=== PATIENT | male | born 1990 | race Caucasian/White ===

== ENCOUNTER 2017-02-21 21:33 | Emergency (ER) | payer MEDICAID ==
[~2017-02-21] VITALS: Ht 182.9 cm; Wt 92.1 kg
[~2017-02-21 21:33] MED LIST: BACTRIM DS 8001 TA1 PO; CEPHALEXIN500 MG PO; ERY-TAB 250MG250 MG OR; GABAPENTIN300 MG PO; IBU-8800 MG PO; LORTAB 5/500 501 TAB OR; LORTAB 5/500 501 TAB PO; NOMEDS; NOMEDS XX; PHENERGAN 25MG.25 M1 PO; PROPRANOLOL HCL20 MG PO; ZANTAC OR; [UNRECOGNIZED DRUG - OTHER] OR
--- OUTSIDE RECORDS SUMMARY | 2017-02-21 21:52 | External Medical Summary Rpt ---
Author Author DAVID Production, DAVID [employer] Organization DAVID [employer] Address Unknown Phone Unavailable Results CHLAMYDIA AND GONORRHEA TESTING Observa Value Referen Units Interpr Notes Date tion ce etation Range COLLECT PATIENT No No No No Nov 09 OR AND T. informa informa informa informa 2014 tion in tion in tion in tion in 1:00 PM CHACORTA source source source source RN data data data data ETHNICI WHITE, No No No No Nov 09 TY NON-HIS informa informa informa informa 2014 PANIC tion in tion in tion in tion in 1:00 PM source source source source data data data data KIT 09-30-2 No No No No Nov 09 EXPIRAT 014 informa informa informa informa 2014 ION tion in tion in tion in tion in 1:00 PM DATE source source source source data data data data SYMPTOM YES No No No No Nov 09 S informa informa informa informa 2014 tion in tion in tion in tion in 1:00 PM source source source source data data data data REASON SEX No No No No Nov 09 FOR PARTNER informa informa informa informa 2014 REQUEST tion in tion in tion in tion in 1:00 PM REFERRA source source source source L data data data data SPECIME URINE No No No No Nov 09 N informa informa informa informa 2014 SOURCE tion in tion in tion in tion in 1:00 PM source source source source data data data data PREGNAN NO No No No No Nov 09 T informa informa informa informa 2014 tion in tion in tion in tion in 1:00 PM source source source source data data data data CHART NA No No No No Nov 09 NUMBER informa informa informa informa 2014 tion in tion in tion in tion in 1:00 PM source source source source data data data data Chlamyd NEGATIV No No No NEGATIV Nov 09 ia E informa informa informa E 2014 trachom tion in tion in tion in RESULT= 1:00 PM atis source source source WITHIN rRNA data data data NORMAL [Presen ce] in LIMITSP Unspeci OSITIVE fied specime RESULT= n by Probe & ABNORMA target LEQUIVO LANA amplifi RESULT= cation method INDETER MINATEU NSATISF ACTORY RESULT= INVALID Neisser POSITIV No No No NEGATIV Nov 09 ia E informa informa informa E 2014 gonorrh tion in tion in tion in RESULT= 1:00 PM oeae source source source WITHIN rRNA data data data NORMAL [Presen ce] in LIMITSP Unspeci OSITIVE fied specime RESULT= n by Probe & ABNORMA target LEQUIVO LANA amplifi RESULT= cation method INDETER MINATEU NSATISF ACTORY RESULT= INVALID THE APTIMA COMBO 2 ASSAY IS NOT INTENDE D FOR THE EVALUAT ION OF SUSPECT EDSEXUA L ABUSE OR FOR OTHER MEDICO- LEGAL INDICAT IONS. FOR THOSE PATIENT S FORWHOM A FALSE POSITIV E RESULT MAY HAVE ADVERSE PSYCHO- SOCIAL IMPACT, THE [facility] DAMRECO MMENDS RETESTI NG.\.br \This report contain s patient informa tion that must be protect ed in accorda nce with the Health Insuran ce Portabi lity and Account ability Act. CHLAMYDIA AND GONORRHEA TESTING Observa Value Referen Units Interpr Notes Date tion ce etation Range COLLECT PATIENT No No No No Nov 09 OR AND T. informa informa informa informa 2013 tion in tion in tion in tion in 1:00 PM CHACORTA source source source source RN data data data data ETHNICI WHITE, No No No No Nov 09 TY NON-HIS informa informa informa informa 2014 PANIC tion in tion in tion in tion in 1:00 PM source source source source data data data data KIT -30-2 No No No No Nov 09 EXPIRAT 014 informa informa informa informa 2014 ION tion in tion in tion in tion in 1:00 PM DATE source source source source data data data data SYMPTOM YES No No No No Nov 09 S informa informa informa informa 2014 tion in tion in tion in tion in 1:00 PM source source source source data data data data REASON SEX No No No No Nov 09 FOR PARTNER informa informa informa informa 2014 REQUEST tion in tion in tion in tion in 1:00 PM REFERRA source source source source L data data data data SPECIME URINE No No No No Nov 09 N informa informa informa informa 2014 SOURCE tion in tion in tion in tion in 1:00 PM source source source source data data data data PREGNAN NO No No No No Nov 09 T informa informa informa informa 2014 tion in tion in tion in tion in 1:00 PM source source source source data data data data CHART NA No No No No Nov 09 NUMBER informa informa informa informa 2014 tion in tion in tion in tion in 1:00 PM source source source source data data data data Chlamyd Pending No No No No Nov 09 ia informa informa informa informa 2014 trachom tion in tion in tion in tion in 1:00 PM atis source source source source rRNA data data data data [Presen ce] in Unspeci fied specime n by Probe & target amplifi cation method Neisser Pending No No No \.br\Nov 09 ia informa informa informa is 2014 gonorrh tion in tion in tion in report 1:00 PM oeae source source source contain rRNA data data data s [Presen patient ce] in Unspeci informa fied tion specime that n by must be Probe & target protect ed in amplifi accorda cation nce method with the Health Insuran ce Portabi lity and Account ability Act.
--- OUTSIDE RECORDS SUMMARY | 2017-02-21 21:52 | External Medical Summary Rpt | CCD ---
Author Author , DAVID Organization DAVID Address Unknown Phone [email or web address] Providers Care Chief Lock Operator Name Role Phone [facility] Unavailable [facility]available SERVICE, [facility] Unavailable Unavailable INC, [facility], Unavailable Unavailable PLL[facility], [facility] Purpose Continuity of Care Document - 03-10-2016 through 2016 Problems Code Diagnosis DOS Provider Status [id number] UNS INJURY 05-22-2016 [facility] AT [facility] CERV SERVICE SPINAL CORD INIT ENC [id number] SUPERFICIAL 05-22-2016 [facility] BODY RT PLL[facility] KNEE INITIAL ENCNTR [id number] STRAIN UNS 05-22-2016 [facility], TENDON LOW PLLC LEG RT LEG INIT ENC B182 CHRONIC 03-10-2016 [facility] Encounters Encounter Start End Date Code Location Performer Type Date [facility] - [facility] 6 [facility] T
--- OUTSIDE RECORDS SUMMARY | 2017-02-21 21:52 | External Medical Summary Rpt | CCD ---
Author Author , DAVID HERNANDEZ Address Unknown Phone [email or web address] Care Team Providers Care Leather Currier Name Role Phone [facility] Unavailable Unavailable SERVICE, [facility] Unavailable Unavailable INC, [facility] Sarah Johnson MD, Unavailable Unavailable Sarah [facility], Unavailable Unavailable PLL[facility], [facility] Purpose Continuity of Care Document - 09-14-2012 through 2016 Problems Code Diagnosis DOS Provider Status [id number] UNS INJURY 05-22-2016 [facility] AT [facility] AMBULANCE CERV SERVICE SPINAL CORD INIT ENC [id number] SUPERFICIAL 05-22-2016 [facility] BODY RT PLL[facility] KNEE INITIAL ENCNTR [id number] STRAIN UNS 05-22-2016 [facility] LEG RT LEG INIT ENC B182 CHRONIC 03-10-2016 [place] [facility] INC 305.1 305.1 01-04-2013 [place] TOBACCO USE [facility] 681.00 681.00 01-04-2013 [place] CELLULITIS, [facility] FINGER [facility] V14.0 V14.0 01-04-2013 [place] HX-PENICILL [facility] 914.4 914.4 09-14-2012 [place] INSECT BITE [facility] Allergies, Adverse Reactions, Alerts Type Drug Allergy Adverse Reaction to Substance Substance Reaction Severity Penicillin I-RASH Intermediate Medications Na ND Rx Da Fi Fi Am Da Di Ph RX Ph St me C No te ll ll ou ys ag ar # ys at rm s nt no ma ic us Or Da si cy ia de te s n re d SALDIVAR 51 10 0 No LF 07 -0 AM 90 2- Lo ET 12 20 ng HO 82 13 er XA 0 ZO Ac LE ti -T ve MP DS TA BL ET CE 62 10 0 No PH 75 -0 AL 60 2- Lo EX 29 20 ng IN 48 13 er 8 50 Ac 0 ti MG ve CA PS UL E Vital Signs 01-04-2013 22:02 Name Value Interpretat Reference Comment ion Range Body 98.8 [degF] Temperature BP 64 mm[Hg] Diastolic BP Systolic 116 mm[Hg] Heart 64 /min Rate/Pulse O2% 98 % Respiratory 20 /min Rate 01-04-2013 21:57 Name Value Interpretat Reference Comment ion Range BP 64 mm[Hg] Diastolic BP Systolic 116 mm[Hg] Heart 64 /min Rate/Pulse O2% 98 % Respiratory 20 /min Rate 09-14-2012 12:42 Name Value Interpretat Reference Comment ion Range Body 98.2 [degF] Temperature BP 80 mm[Hg] Diastolic BP Systolic 133 mm[Hg] Heart 66 /min Rate/Pulse O2% 96 % Respiratory 18 /min Rate Results Labs Lab Lab Date Result Refere Interp Status Commen Order Detail nces retati t Range on CHLAMYDIA AND GONORRHEA TESTING (11-09-2013 13:00) Monorail Operator: Kayley Pringle MD FC Lab: [facility] Division of Laboratory Services Lab Address: [address] [place] [address], [address] [place] [address] 11-09-2013 1:00 pm Specimen Collection Start Date/Time: Medical Hospital Sales: Specimen Nicole'damon 11-16-2013 9:07 am Date/Time: Ordering Physician: [facility] 11-17-2013 8:48 am Results Rpt/Status Change Date/Time: This report contains patient information that must be protected in accordance with the Health Insurance Portability and Accountability Act. AMPLIFI POSITIV complet ED N 014 E ed GONORRH 13:00 OEAE TEST Comment: NEGATIVE RESULT= WITHIN NORMAL LIMITS Comment: POSITIVE RESULT= ABNORMAL Comment: EQUIVOCAL RESULT= INDETERMINATE Comment: UNSATISFACTORY RESULT= INVALID Comment: THE APTIMA COMBO 2 ASSAY IS NOT INTENDED FOR THE EVALUATION OF SUSPECTED Comment: SEXUAL ABUSE OR FOR OTHER MEDICO-LEGAL INDICATIONS. FOR THOSE PATIENTS FOR Comment: WHOM A FALSE POSITIVE RESULT MAY HAVE ADVERSE PSYCHO-SOCIAL IMPACT, THE CDC Comment: RECOMMENDS RETESTING. Comment: \E\.br\E\This report contains patient information that must be protected in accordance with the Health Insurance Portability and Accountability Act. AMPLIFI NEGATIV complet ED 014 E ed CHLAMYD 13:00 IA TEST Comment: NEGATIVE RESULT= WITHIN NORMAL LIMITS Comment: POSITIVE RESULT= ABNORMAL Comment: EQUIVOCAL RESULT= INDETERMINATE Comment: UNSATISFACTORY RESULT= INVALID CHART NA complet NUMBER 014 ed 13:00 PREGNAN NO complet T 014 ed 13:00 SPECIME URINE complet N 014 ed SOURCE 13:00 REASON SEX complet FOR 014 PARTNER ed REQUEST 13:00 REFERRA L SYMPTOM YES complet S 014 ed 13:00 KIT complet EXPIRAT 014 014 ed ION 13:00 DATE ETHNICI WHITE, complet TY 014 NON-HIS ed 13:00 PANIC COLLECT PATIENT complet OR 014 AND T. ed 13:00 CHACORTA RN CHLAMYDIA AND GONORRHEA TESTING (11-09-2013 13:00) Chlamyd NEGATIV complet ia 014 E ed trachom 13:00 atis rRNA [Presen ce] in Unspeci fied specime n by Probe & target amplifi cation method Neisser POSITIV complet ia 014 E ed gonorrh 13:00 oeae rRNA [Presen ce] in Unspeci fied specime n by Probe & target amplifi cation method CHLAMYDIA AND GONORRHEA TESTING (11-09-2013 13:00) COLLECT PATIENT complet OR 014 AND T. ed 13:00 CHACORTA RN ETHNICI WHITE, complet TY 014 NON-HIS ed 13:00 PANIC KIT complet EXPIRAT 014 014 ed ION 13:00 DATE SYMPTOM YES complet S 014 ed 13:00 REASON SEX complet FOR 014 PARTNER ed REQUEST 13:00 REFERRA L SPECIME URINE complet N 014 ed SOURCE 13:00 PREGNAN NO complet T 014 ed 13:00 CHART NA complet NUMBER 014 ed 13:00 Chlamyd Pending complet ia 014 ed trachom 13:00 atis rRNA [Presen ce] in Unspeci fied specime n by Probe & target amplifi cation method Neisser Pending complet ia 014 ed gonorrh 13:00 oeae rRNA [Presen ce] in Unspeci fied specime n by Probe & target amplifi cation method Encounters Encounter Start End Date Code Location Performer Type Date [facility] - 6 6 [facility] ANTOINETTE Johnson MD (ER) 3 21:21 3 22:03 [facility] Emergency ANTOINETTE Johnson MD (ER) 3 12:38 3 12:48 [facility]
--- OUTSIDE RECORDS SUMMARY | 2017-02-21 21:52 | External Medical Summary Rpt | CCD ---
Author Author , DAVID Organization DAVID Address Unknown Phone [email or web address] Care Team Providers Care Training Executive Name Role Phone [facility] Unavailable Unavailable SERVICE, [facility] Unavailable Unavailable INC, [facility], Unavailable Unavailable PLL[facility], [facility] Purpose Continuity of Care Document - 03-10-2016 through 2016 Problems Code Diagnosis DOS Provider Status [id number] UNS INJURY 05-22-2016 [facility] AT [facility] LEVL AMBULANCE CERV SERVICE SPINAL CORD INIT ENC [id number] SUPERFICIAL 05-22-2016 [facility] BODY RT PLLC KNEE INITIAL ENCNTR [id number] STRAIN UNS 05-22-2016 [facility], TENDON LOW PLLC LEG RT LEG INIT ENC B182 CHRONIC 03-10-2016 [facility] Encounters Encounter Start End Date Code Location Performer Type Date [facility] - [facility] 6 [facility] T
--- OUTSIDE RECORDS SUMMARY | 2017-02-21 21:52 | External Medical Summary Rpt | CCD ---
Author Author , DAVID HERNANDEZ Address Unknown Phone [email or web address] Care Team Providers Care Government Program Manager Name Role Phone [facility] Unavailable Unavailable SERVICE, [facility] Unavailable Unavailable INC, [facility] Sarah Johnson MD, Unavailable Unavailable Sarah [facility], Unavailable Unavailable PLLC, [facility] Purpose Continuity of Care Document - 09-14-2012 through 2016 Problems Code Diagnosis DOS Provider Status [id number] UNS INJURY 05-22-2016 [facility] AT [facility] LEVL AMBULANCE CERV SERVICE SPINAL CORD INIT ENC [id number] SUPERFICIAL 05-22-2016 [facility], BODY RT PLLC KNEE INITIAL ENCNTR [id number] STRAIN UNS 05-22-2016 [facility], TENDON LOW PLLC LEG RT LEG INIT ENC B182 CHRONIC 03-10-2016 [place] [facility] 305.1 305.1 01-04-2013 [place] TOBACCO USE [facility] 681.00 681.00 01-04-2013 [place] CELLULITIS, [facility] FINGER [facility] V14.0 V14.0 01-04-2013 [place] HX-PENICILL [facility] 914.4 914.4 09-14-2012 [place] INSECT BITE [facility] Allergies, Adverse Reactions, Alerts Type Drug Allergy [...] on CHLAMYDIA AND GONORRHEA TESTING (11-09-2013 13:00) Director Of Food And Nutrition: Kayley Pringle MD FC Lab: [facility] Public Health Division of Laboratory Services Lab Address: [address] [place] [address], [address] [place] [address] 11-09-2013 1:00 pm Specimen Collection Start Date/Time: Commercial Attorney: Specimen Nicole'damon 11-16-2013 9:07 am Date/Time: Ordering Physician: [facility] 11-17-2013 8:48 am Results Rpt/Status Change Date/Time: [...] End Date Code Location Performer Type Date [facility] - 6 6 [facility] ANTOINETTE Johnson MD (ER) 3 21:21 3 22:03 [facility] Emergency ANTOINETTE Johnson MD (ER) 3 12:38 3 12:48 [facility]
--- OUTSIDE RECORDS SUMMARY | 2017-02-21 21:52 | External Medical Summary Rpt | CCD ---
Demographics Preferred Language Occitan Marital Status Unknown Advent Affiliation Unknown Race Unknown Ethnic Group Unknown Author Author , DAVID HERNANDEZ Address Unknown Phone Immunization No patient found.
--- OUTSIDE RECORDS SUMMARY | 2017-02-21 21:52 | External Medical Summary Rpt | CCD ---
Demographics Preferred Language Hungarian Marital Status Unknown Advent Affiliation Unknown Race Unknown Ethnic Group Unknown Author Author , DAVID HERNANDEZ Address Unknown Phone Immunization No patient found.
--- OUTSIDE RECORDS SUMMARY | 2017-02-21 21:52 | External Medical Summary Rpt ---
Author Author DAVID Production, DAVID [employer] Organization DAVID [employer] Address Unknown Phone Unavailable [...] MAY HAVE ADVERSE PSYCHO- SOCIAL IMPACT, [facility] MMENDS RETESTI NG.\.br \This report contain s [...]
--- NOTE | 2017-02-21 22:03 | Emergency Room Report ---
History of Present Illness Time Seen by [id number] Presenting Problem in Triage Pt arrived:Walked Presenting Problem:PT STATED HE JUST RECENTLY GOT OUT OF [facility] AND HAS "SCABIES" BECAUSE HE HAS BEEN TREATED FOR IT PREVIOUSLY WHEN HE WAS IN [facility] BEFORE; HAS SMALL RED BUMPS ON BILATERAL LEGS, SIDES, AND FEET- VERY ITCHY. HAS HAD ABOUT TWO MONTHS AND STATES IT HAS GOTTEN OUT OF CONTROL. 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 N Clinical Suspician of Infection? N Mental Status: 1 - Regular (Normal Baseline) Sepsis Risk:Possible Sepsis Risk Have you (or family members/close friends) recently traveled outside the [place]? N If Yes, where/when: Have you had exposure to infectious disease within the past month? TB? Other? Specify: Source patient, RN notes reviewed, old records Exam Limitations no limitations Comment itchy rash over the last few days with hx of scabies Cardiac Chest Pain Chest pain indicative of cardiac No Timing/Duration this evening Severity moderate ALLERGIES Coded Allergies: Penicillins (Intermediate, I-RASH 05/22/16) Home Medications Reported Medications No Known Home Medications History Medical History General CAD? No Angina: No OK: No Hypertension? Yes Hyperlipidemia? No CHF? No DVT? No PE? No COPD? No Asthma? No Anemia? No GERD? No Gastric ulcers? No GI Bleed? No Hernia? No Thyroid Problems? No Hypothyroidism? No CVA? No Seizures? No Diabetes? No Insulin Dependent: No Insulin Pump: No Home FSBS? No Renal Insuffiency? No End Stage Renal Disease? No UTI? No Stones? No BPH? No GB Disease: No Nephritic Syndrome? No Asplenia? No Hepatitis? No Sickle Cell Disease? No Arthritis? No Migraines? No Cataracts? No Glaucoma? No MRSA? No HIV? No TB? No Anxiety? No Depression? No Cancer? No More? No Immunization Hx DT/Tetanus Unknown Surgical Hx Previous Surgery?Y TONSILS Social History Smoking Hx Smoker: Current Every Day Smoker Tobacco: Yes Type Cigarettes Packs/day 1 1/2 - 2 Packs Alcohol Alcohol: No Drugs none Review of Systems All Other Systems Reviewed and Negative Constitutional denies fever Eyes denies drainage ENT denies: ear pain, epistaxis, throat pain. Respiratory denies cough Cardiovascular denies palpitations Gastrointestinal denies diarrhea, denies vomiting Genitourinary denies: frequency. Musculoskeletal denies joint swelling Skin see HPI, rash Psychiatric/Neurological denies seizure Physical Exam Vital Signs Vital Signs Date Time Temp Pulse Resp B/P Pulse O2 O2 Flow FiO2 Ox Delivery Rate 02/21 2137 99.0 92 20 156/93 96 - WBC >12,000 or <4,000 or 10% bands? 2 or more SIRS Criteria Met? B/P:156/93 MAP:114 Creatinine >2.0? UA output<0.5ml/kg/hr for 2 hrs? Platelet count >100,000? Lactate >2.0mmol/1? INR >1.2 or PTT > than 60 sec? Evidence of Organ Dysfunction? Provider documented clinical suspician of infection? N Sepsis Criteria Count: 2 Sepsis Risk: Possible Sepsis Risk General Appearance no apparent distress Eye Exam - bilateral eye PERRL, bilateral eye EOMI Ear, Nose, Throat normal ENT inspection Neck non-tender Respiratory Status No: respiratory distress. 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 No Departure Departure Time of Disposition 2200 Disposition DC Home or Self Care(routine) Clinical Impression Primary Impression: Scabies Condition STABLE Patient Instructions DI for Scabies Additional Instructions use meds and see pcp for follow up Discharge Counseling Counseled pt/family regarding diagnosis, follow up needs Prescriptions Current Visit Scripts No Known Home Medications ED Critical Care Critical Care No Comments will write rx for elemite at 2205
--- NOTE | 2017-02-21 22:03 | Emergency Room Report ---
History of Present Illness Time Seen by [id number] Presenting Problem in Triage Pt arrived:Walked Presenting Problem:PT STATED HE JUST RECENTLY GOT OUT OF [facility] AND HAS "SCABIES" BECAUSE HE HAS BEEN TREATED FOR IT PREVIOUSLY WHEN HE WAS IN [facility] BEFORE; HAS SMALL RED BUMPS ON BILATERAL LEGS, SIDES, AND FEET- VERY ITCHY. HAS HAD ABOUT TWO MONTHS AND STATES IT HAS GOTTEN OUT OF CONTROL. 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 N Clinical Suspician of Infection? N Mental Status: 1 - Regular (Normal Baseline) Sepsis Risk:Possible Sepsis Risk Have you (or family members/close friends) recently traveled outside the [place]? N If Yes, where/when: Have you had exposure to infectious disease within the past month? TB? Other? Specify: Source patient, RN notes reviewed, old records Exam Limitations no limitations Comment itchy rash over the last few days with hx of scabies Cardiac Chest Pain Chest pain indicative of cardiac No Timing/Duration this evening Severity moderate ALLERGIES Coded Allergies: Penicillins (Intermediate, I-RASH 05/22/16) Home Medications Reported Medications No Known Home Medications History Medical History General CAD? No Angina: No NH: No Hypertension? Yes Hyperlipidemia? No CHF? No DVT? No PE? No COPD? No Asthma? No Anemia? No GERD? No Gastric ulcers? No GI Bleed? No Hernia? No Thyroid Problems? No Hypothyroidism? No CVA? No Seizures? No Diabetes? No Insulin Dependent: No Insulin Pump: No Home FSBS? No Renal Insuffiency? No End Stage Renal Disease? No UTI? No Stones? No BPH? No GB Disease: No Nephritic Syndrome? No Asplenia? No Hepatitis? No Sickle Cell Disease? No Arthritis? No Migraines? No Cataracts? No Glaucoma? No MRSA? No HIV? No TB? No Anxiety? No Depression? No Cancer? No More? No Immunization Hx DT/Tetanus Unknown Surgical Hx Previous Surgery?Y TONSILS Social History Smoking Hx Smoker: Current Every Day Smoker Tobacco: Yes Type Cigarettes Packs/day 1 1/2 - 2 Packs Alcohol Alcohol: No Drugs none Review of Systems All Other Systems Reviewed and Negative Constitutional denies fever Eyes denies drainage ENT denies: ear pain, epistaxis, throat pain. Respiratory denies cough Cardiovascular denies palpitations Gastrointestinal denies diarrhea, denies vomiting Genitourinary denies: frequency. Musculoskeletal denies joint swelling Skin see HPI, rash Psychiatric/Neurological denies seizure Physical Exam Vital Signs Vital Signs Date Time Temp Pulse Resp B/P Pulse O2 O2 Flow FiO2 Ox Delivery Rate 02/21 2137 99.0 92 20 156/93 96 - WBC >12,000 or <4,000 or 10% bands? 2 or more SIRS Criteria Met? B/P:156/93 MAP:114 Creatinine >2.0? UA output<0.5ml/kg/hr for 2 hrs? Platelet count >100,000? Lactate >2.0mmol/1? INR >1.2 or PTT > than 60 sec? Evidence of Organ Dysfunction? Provider documented clinical suspician of infection? N Sepsis Criteria Count: 2 Sepsis Risk: Possible Sepsis Risk General Appearance no apparent distress Eye Exam - bilateral eye PERRL, bilateral eye EOMI Ear, Nose, Throat normal ENT inspection Neck non-tender Respiratory Status No: respiratory distress. 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 No Departure Departure Time of Disposition 2200 Disposition DC Home or Self Care(routine) Clinical Impression Primary Impression: Scabies Condition STABLE Patient Instructions DI for Scabies Additional Instructions use meds and see pcp for follow up Discharge Counseling Counseled pt/family regarding diagnosis, follow up needs Prescriptions Current Visit Scripts No Known Home Medications ED Critical Care Critical Care No Comments will write rx for elemite at 2205
[2017-02-21 22:15] VITALS: BP 156/93
== END 2017-02-21 22:16 | disposition home or self-care (01) ==
LOC: ER 21:33
DX: B86 Scabies (principal); I10 Essential (primary) hypertension; F17.210 Nicotine dependence, cigarettes, uncomplicated; Z88.0 Allergy status to penicillin